=== PATIENT | male | born 1975 | race African-American/Black ===

== ENCOUNTER 2017-04-07 09:11 | Emergency (ER) | payer OTHER ==
[2017-04-07 09:15] VITALS: BP 148/84; PULSE 78; TEMP 98.2; BMI 29.7
[2017-04-07] MEDS ORDERED: KETOROLAC TROMETHAMINE 60 MG/2 ML VIAL IM ONE (10:30)
[2017-04-07] MEDS ORDERED: KETOROLAC TROMETHAMINE 60 MG/2 ML VIAL ONE (10:33)
--- NOTE | 2017-04-07 10:49 | PDOC ---
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 Woke up this morning with pain and spasm to same. Denies numbness or tingling to feet, denies problems with bowel or bladder. Occurred: reports: yesterday Severity: reports: moderate Pain Location: reports: back Method of Injury: Yes: other (heavy lifting) Loss of Consciousness: no loss of consciousness Associated Symptoms (Fall): denies symptoms Past History - Travel Traveled outside of the country in the last 30 days: No Close contact w/someone who was outside of country & ill: No - Past Medical History Allergies/Adverse Reactions: Allergies Allergy/AdvReac Type Severity Reaction Status Date / Time No Known Allergies Allergy Verified 04/07/17 09:15 Home Medications: Ambulatory Orders Cyclobenzaprine HCl [Flexeril 10 mg] 10 mg PO BID PRN #14 tablet 04/07/17 Asthma: Yes - Family Disease History Family Disease History: Diabetes: Mother - Psycho/Social/Smoking Cessation Hx Anxiety: No Suicidal Ideation: No Smoking Status: Yes Smoking History: Current every day smoker Number of Cigarettes Smoked Daily: 30 Information on smoking cessation initiated: Yes 'Breaking Loose' booklet given: 04/07/17 Hx Alcohol Use: Yes (SOCIAL) Drug/Substance Use Hx: No Substance Use Type: None Trauma Specific PMHX - Complaint Specific PMHX Back Injury: Yes (lat year at work lifting heavy box) Review of Systems - Review of Systems Able to Perform ROS?: Yes Is the patient limited Greenlandic proficient: Yes Constitutional: Yes: See HPI. No: Symptoms Reported, Fever, Malaise HEENTM: No: Symptoms Reported Respiratory: No: Symptoms reported Musculoskeletal: Yes: Symptoms Reported, See HPI, Back Pain, Muscle Weakness ( spasm) Integumentary: No: Symptoms Reported All Other Systems: Reviewed and Negative *Physical Exam - Vital Signs Last Vital Signs Temp Pulse Resp BP Pulse Ox 98.2 F 78 20 148/84 99 04/07/17 09:13 04/07/17 09:13 04/07/17 09:13 04/07/17 09:13 04/07/17 09:13 - Physical Exam General Appearance: Yes: Nourished, Appropriately Dressed, Apparent Distress, Mild Distress, Moderate Distress HEENT: positive: MARIE, Normal ENT Inspection, TMs Normal, Pharynx Normal Musculoskeletal: positive: Normal Inspection, Muscle Spasm. negative: CVA Tenderness, Vertebral Tenderness (tense and painful musculature around thoracic to lumbar paravertebral spinous muscles. Has trip to bone tenderness, crepitus or step-offs to vertebral spine. Range of motion is limited secondary to spasm) Extremity: positive: Normal Capillary Refill, Normal Inspection, Normal Range of Motion Integumentary: positive: Normal Color, Dry, Warm Neurologic: positive: youth associate II-XII NML intact, Fully Oriented, Alert, Normal Mood/ Affect, Normal Response, Motor Strength 5/5 *DC/Admit/Observation/Transfer Diagnosis at time of Disposition: Low back strain Qualifiers: Encounter type: initial encounter Qualified Code(s): S39.012A - Strain of muscle, fascia and tendon of lower back, initial encounter - Discharge Dispostion Disposition: HOME Condition at time of disposition: Stable Admit: No - Prescriptions Prescriptions: Cyclobenzaprine HCl [Flexeril 10 mg] 10 mg PO BID PRN #14 tablet PRN Reason: spasm - Patient Instructions Printed Discharge Instructions: DI for Back Strain or Sprain Additional Instructions: Rest, no heavy lifting or exercise until pain is resolved Hot soaks to neck and low back as often as possible/hot showers or Jacuzzis No massage or therapy until spasm is gone Continue ibuprofen 2-200 mg tablets every 6 hours for the next 3 days then as needed for pain and swelling Cyclobenzaprine 1-10mg every 8 hours as needed for spasm If not significant improvement within 24 hours with medication and rest regime, followup with private physician for change in medications and /or therapy. - Post Discharge Activity Work/School Note: Back to Work
== END 2017-04-07 10:51 | disposition home or self-care (01) ==
LOC: JERFT 09:11
PROC: 3E0233Z Introduction of Anti-inflammatory into Muscle, Percutaneous Approach (ICD-10-PCS; principal; 2017-04-07)
DX: S39.012A Strain of muscle, fascia and tendon of lower back, initial encounter (principal); X58.XXXA Exposure to other specified factors, initial encounter; Y93.89 Activity, other specified; Y92.129 Unspecified place in nursing home as the place of occurrence of the external cause; Y99.0 Civilian activity done for income or pay; J45.909 Unspecified asthma, uncomplicated; F17.210 Nicotine dependence, cigarettes, uncomplicated
CPT/HCPCS: 99281-25

== ENCOUNTER 2018-10-02 10:18 | Emergency (ER) | payer OTHER ==
[2018-10-02 10:25] VITALS: BP 134/97; PULSE 71; TEMP 97.5; BMI 30.6
[2018-10-02] MEDS ORDERED: KETOROLAC TROMETHAMINE 60 MG/2 ML VIAL IM ONE (11:06)
--- NOTE | 2018-10-02 11:11 | PDOC ---
History of Present Illness - General Chief Complaint: Pain Stated Complaint: LEG PAIN Time Seen by Provider: 10/02/18 10:50 History Source: Patient Exam Limitations: No Limitations - History of Present Illness Initial Comments: 10/02/18 Patient came with complaints of low back pain. States 3 days ago had onset of pain after doing some twisting at work and is progressively worsen. No relief with Tylenol. Denies numbness or tingling to foot, no fevers or problems with bowel or bladder. Occurred: reports: last week Severity: reports: mild, moderate Pain Location: reports: back Method of Injury: Yes: unknown Modifying Factors: improves with: None Loss of Consciousness: no loss of consciousness Associated Symptoms (Fall): denies symptoms Past History - Travel Traveled outside of the country in the last 30 days: No Close contact w/someone who was outside of country & ill: No - Past Medical History Allergies/Adverse Reactions: Allergies Allergy/AdvReac Type Severity Reaction Status Date / Time No Known Allergies Allergy Verified 10/02/18 10:25 Home Medications: Ambulatory Orders Cyclobenzaprine HCl 10 mg PO Q8H PRN #14 tablet 10/02/18 Hydrochlorothiazide [Hctz -] 25 mg PO DAILY 10/02/18 Hydrochlorothiazide [Hctz -] 25 mg PO DAILY #7 tablet 10/02/18 Naproxen [Naprosyn -] 500 mg PO BID #30 tablet 10/02/18 Asthma: Yes COPD: No HTN: Yes - Family Disease History Family Disease History: Diabetes: Mother - Suicide/Smoking/Psychosocial Hx Smoking Status: Yes Smoking History: Current every day smoker Number of Cigarettes Smoked Daily: 7 Information on smoking cessation initiated: No 'Breaking Loose' booklet given: 03/29/18 Hx Alcohol Use: No Drug/Substance Use Hx: No Substance Use Type: None Trauma Specific PMHX - Complaint Specific PMHX Back Injury: Yes (lat year at work lifting heavy box) Review of Systems - Review of Systems Able to Perform ROS?: Yes Is the patient limited Divehi proficient: Yes Constitutional: Yes: Symptoms Reported, See HPI, Malaise. No: Fever HEENTM: Yes: See HPI. No: Symptoms Reported Respiratory: Yes: See HPI. No: Symptoms reported, Cough Musculoskeletal: Yes: Symptoms Reported, See HPI, Back Pain, Muscle Pain (with radiating pain ) Neurological: Yes: See HPI. No: Symptoms reported All Other Systems: Reviewed and Negative *Physical Exam - Vital Signs Last Vital Signs Temp Pulse Resp BP Pulse Ox 97.5 F L 71 18 134/97 99 10/02/18 10:22 10/02/18 10:22 10/02/18 10:22 10/02/18 10:22 10/02/18 10:22 - Physical Exam General Appearance: Yes: Nourished, Appropriately Dressed, Apparent Distress, Mild Distress HEENT: positive: MARIE, Normal ENT Inspection, TMs Normal, Pharynx Normal Neck: positive: Supple, Lymphadenopathy (R), Lymphadenopathy (L). negative: Tender Respiratory/Chest: positive: Lungs Clear, Normal Breath Sounds Gastrointestinal/Abdominal: positive: Soft. negative: Tender Musculoskeletal: positive: Normal Inspection, Decreased Range of Motion, Muscle Spasm (mild spasm to paravertebral muscles , worse on right thgan left at L2,3,4 ). negative: Vertebral Tenderness Extremity: positive: Normal Capillary Refill, Normal Inspection, Normal Range of Motion Integumentary: positive: Normal Color, Dry, Warm Neurologic: positive: buyer II-XII NML intact, Fully Oriented, Alert, Normal Mood/ Affect, Normal Response, Motor Strength 5/5 Moderate Sedation - Procedure Monitoring Vital Signs: Procedure Monitoring Vital Signs Temperature 97.5 F L 10/02/18 10:22 Pulse Rate 71 10/02/18 10:22 Respiratory Rate 18 10/02/18 10:22 Blood Pressure 134/97 10/02/18 10:22 O2 Sat by Pulse Oximetry (%) 99 10/02/18 10:22 Progress Note - Progress Note Progress Note: Back strain, will treat with NSAIDs and cyclobenzaprine *DC/Admit/Observation/Transfer Diagnosis at time of Disposition: Low back strain Qualifiers: Encounter type: initial encounter Qualified Code(s): S39.012A - Strain of muscle, fascia and tendon of lower back, initial encounter - Discharge Dispostion Disposition: HOME Condition at time of disposition: Stable Decision to Admit order: No - Prescriptions Prescriptions: Cyclobenzaprine HCl 10 mg PO Q8H PRN #14 tablet PRN Reason: spasm Hydrochlorothiazide [Hctz -] 25 mg PO DAILY #7 tablet Naproxen [Naprosyn -] 500 mg PO BID #30 tablet - Referrals - Patient Instructions Printed Discharge Instructions: DI for Back Strain or Sprain Additional Instructions: Rest, no heavy lifting or exercise until pain is resolved Hot soaks to neck and low back as often as possible/hot showers or Jacuzzis No massage or therapy until spasm is gone Continue Naprosyn 500 mg tablet, 1 tablet every 8 hours for the next 3 days then as needed for pain and swelling Cyclobenzaprine 1-10mg every 8 hours as needed for spasm If not significant improvement within 24 hours with medication and rest regime, followup with private physician for change in medications and /or therapy. - Post Discharge Activity Forms/Work/School Notes: Back to Work
[2018-10-02] MEDS ORDERED: KETOROLAC TROMETHAMINE 60 MG/2 ML VIAL ONE (11:12)
== END 2018-10-02 11:34 | disposition home or self-care (01) ==
LOC: JERFT 10:18
PROC: 3E0233Z Introduction of Anti-inflammatory into Muscle, Percutaneous Approach (ICD-10-PCS; principal; 2018-10-02)
DX: S39.012A Strain of muscle, fascia and tendon of lower back, initial encounter (principal); M62.830 Muscle spasm of back; X50.1XXA Overexertion from prolonged static or awkward postures, initial encounter; Y93.H9 Activity, other involving exterior property and land maintenance, building and construction; Y92.128 Other place in nursing home as the place of occurrence of the external cause; Y99.0 Civilian activity done for income or pay; I10 Essential (primary) hypertension; Z87.09 Personal history of other diseases of the respiratory system
CPT/HCPCS: 99281-25

== ENCOUNTER 2019-07-23 11:17 | Emergency (ER) | payer OTHER ==
[2019-07-23 11:23] VITALS: BP 161/101; PULSE 86; TEMP 97.7; BMI 30.9
--- NOTE | 2019-07-23 11:40 | PDOC ---
History of Present Illness - General Chief Complaint: Pain Stated Complaint: RT KNEE PAIN Time Seen by Provider: 07/23/19 11:30 - History of Present Illness Initial Comments: 07/23/19 11:40 CHIEF COMPLAINT: right knee pain HISTORY OF PRESENT ILLNESS: 44 yo M presents to [facility] with right knee swelling and pain . Patient describes pain as a shooting pain, worse to the medial and anterior aspects of the R knee. Denies any recent trauma but does report frequently going to the gym in the past "although not really recently." Patient also reports long standing history of arthritis in his family. No recent travel or sick contacts. PAST MEDICAL HISTORY: Denies past medical history FAMILY HISTORY: Denies SOCIAL HISTORY: Denies tobacco, alcohol, illicit drug use. SURGICAL HISTORY: Denies ALLERGIES: No known drug allergies REVIEW OF SYSTEMS General/Constitutional: Denies fever or chills. Denies weakness, weight change. HEENT: Denies change in vision. Denies ear pain or discharge. Denies sore throat. Cardiovascular: Denies chest pain or shortness of breath. Respiratory: Denies cough, wheezing, or hemoptysis. Gastrointestinal: Denies nausea, vomiting, diarrhea or constipation. Denies rectal bleeding. Genitourinary: Denies dysuria, frequency, or change in urination. Musculoskeletal: R knee pain and swelling. Skin and breasts: Denies rash or easy bruising. Neurologic: Denies headache, vertigo, loss of consciousness, or loss of sensation. Psychiatric: Denies depression or anxiety. PHYSICAL EXAM General Appearance: Well-appearing, appropriately dressed. No apparent distress , no intoxication. HEENT: EOMI, PERRLA, normal ENT inspection, normal voice, TMs normal, pharynx normal. No conjunctival pallor. No photophobia, scleral icterus. Neck: Supple. Trachea midline. No tenderness, rigidity, carotid bruit, stridor , lymphadenopathy, or thyromegaly. Respiratory/Chest: Lungs CTAB. No shortness of breath, chest tenderness, respiratory distress, accessory muscle use. No crackles, rales, rhonchi, stridor , wheezing, dullness Cardiovascular: RRR. S1, S2. No JVD, murmur, bradycardia, tachycardia. Vascular Pulses: Dorsalis-Pedis (R): 2+, Dorsalis-Pedis (L): 2+ Gastrointestinal/Abdominal: Normal bowel sounds. Abdomen soft, non-distended. No tenderness or rebound tenderness. No organomegaly, pulsatile mass, guarding , hernia, hepatomegaly, splenomegaly. Musculoskeletal/Extremities: Tenderness to anterior/medial aspect of R knee. Mild swelling to anterior aspect of R knee. +calf tenderness on palpation. FROM of all extremities, normal capillary refill. Pelvis Stable. No CVA tenderness. No tenderness to extremities, pedal edema, swelling, erythema or deformity. Integumentary: Appropriate color, dry, warm. No cyanosis, erythema, jaundice or rash Neurologic: scoop filler II-XII intact. Fully oriented, alert. Appropriate mood/affect. Motor strength 5/5. No appreciable EOM palsy, facial droop or sensory deficit. 07/23/19 12:23 Past History - Past Medical History Allergies/Adverse Reactions: Allergies Allergy/AdvReac Type Severity Reaction Status Date / Time No Known Allergies Allergy Verified 07/23/19 11:23 Home Medications: Ambulatory Orders Cyclobenzaprine HCl 10 mg PO Q8H PRN #14 tablet 10/02/18 Hydrochlorothiazide [Hctz -] 25 mg PO DAILY 10/02/18 Hydrochlorothiazide [Hctz -] 25 mg PO DAILY #7 tablet 10/02/18 Naproxen [Naprosyn -] 500 mg PO BID #30 tablet 10/02/18 Diclofenac Sodium 75 mg PO BID #20 tablet. 07/23/19 Asthma: Yes COPD: No HTN: Yes - Psycho Social/Smoking Cessation Hx Smoking Status: Yes Smoking History: Current every day smoker Number of Cigarettes Smoked Daily: 7 Information on smoking cessation initiated: No 'Breaking Loose' booklet given: 03/29/18 Hx Alcohol Use: No Drug/Substance Use Hx: No Substance Use Type: None *Physical Exam - Vital Signs Last Vital Signs Temp Pulse Resp BP Pulse Ox 97.7 F 86 18 161/101 H 98 07/23/19 11:20 07/23/19 11:20 07/23/19 11:20 07/23/19 11:20 07/23/19 11:20 ED Treatment Course - RADIOLOGY Radiology Studies Ordered: Category Date Time Status KNEE 3 POS-RIGHT [RAD] Stat Radiology 07/23/19 11:38 Ordered Medical Decision Making - Medical Decision Making 07/23/19 19:55 44 yo M presents to fast track with right knee swelling and pain . -xray -duplex xray, duplex negative. likely pain secondary to arthritis. NSAIDs, f/u with ortho. Advised patient to take medication as prescribed and follow up with ortho within 1 week. Advised patient of signs and symptoms for return to ED. Patient verbalized understanding and agrees to plan. Discharge - Discharge Information Problems reviewed: Yes Clinical Impression/Diagnosis: Arthritis Condition: Stable Disposition: HOME - Admission No - Additional Discharge Information Prescriptions: Diclofenac Sodium 75 mg PO BID #20 tablet.dr - Follow up/Referral Referrals: Sohail William MD [Staff Physician] - Berto Luther MD [Staff Physician] - - Patient Discharge Instructions Patient Printed Discharge Instructions: DI for Osteoarthritis - Post Discharge Activity Work/Back to School Note: Back to Work
[2019-07-23] MEDS ORDERED: KETOROLAC TROMETHAMINE 60 MG/2 ML VIAL IM ONE (12:10)
[2019-07-23] MEDS ORDERED: KETOROLAC TROMETHAMINE 60 MG/2 ML VIAL ONE (12:14)
[2019-07-23] MEDS ORDERED: KETOROLAC TROMETHAMINE 30 MG/1 ML VIAL ONE (12:14)
== END 2019-07-23 12:50 | disposition home or self-care (01) ==
LOC: JERFT 11:17
PROC: 3E0233Z Introduction of Anti-inflammatory into Muscle, Percutaneous Approach (ICD-10-PCS; principal; 2019-07-23)
DX: M17.11 Unilateral primary osteoarthritis, right knee (principal); I10 Essential (primary) hypertension; J45.909 Unspecified asthma, uncomplicated; F17.210 Nicotine dependence, cigarettes, uncomplicated
CPT/HCPCS: 73562-TC-RT-FY; 93971-TC; 99281-25

== ENCOUNTER 2020-04-14 11:03 | Emergency (ER) | payer OTHER ==
[2020-04-14 11:06] VITALS: BP 167/102; PULSE 88; TEMP 97.8; BMI 30.2
[2020-04-14] MEDS ORDERED: KETOROLAC TROMETHAMINE 60 MG/2 ML VIAL IM ONE (11:36)
[2020-04-14] MEDS ORDERED: KETOROLAC TROMETHAMINE 60 MG/2 ML VIAL ONE (11:39)
--- NOTE | 2020-04-14 11:44 | PDOC ---
History of Present Illness - General Chief Complaint: Pain Stated Complaint: RT/LEG SWOLLEN Time Seen by Provider: 04/14/20 11:14 History Source: Patient - History of Present Illness Occurred: reports: other Lower Extremity Pain Location: right: knee Past History - Medical History Allergies/Adverse Reactions: Allergies Allergy/AdvReac Type Severity Reaction Status Date / Time No Known Allergies Allergy Verified 04/14/20 11:06 Home Medications: Ambulatory Orders Cyclobenzaprine HCl 10 mg PO Q8H PRN #14 tablet 10/02/18 Hydrochlorothiazide [Hctz -] 25 mg PO DAILY 10/02/18 Hydrochlorothiazide [Hctz -] 25 mg PO DAILY #7 tablet 10/02/18 Naproxen [Naprosyn -] 500 mg PO BID #30 tablet 10/02/18 Diclofenac Sodium 75 mg PO BID #20 tablet. 07/23/19 Cyclobenzaprine HCl [Flexeril -] 10 mg PO HS #10 tablet 02/04/20 Ibuprofen 600 mg PO Q6H #30 tablet 02/04/20 Naproxen 500 mg PO BID #50 tablet 04/14/20 Asthma: Yes COPD: No HTN: Yes - Psycho-Social/Smoking History Smoking Status: Yes Smoking History: Current every day smoker Number of Cigarettes Smoked Daily: 7 Information on smoking cessation initiated: No 'Breaking Loose' booklet given: 03/29/18 - Substance Abuse Hx (Audit-C & DAST Scrn) How often the patient has a drink containing alcohol: 2-4 times / month Score: In Men: 4 or > Positive; In Women: 3 or > Positive: 2 Screen Result (Pos requires Nsg. Audit-10AR): Negative Review of Systems - Review of Systems Constitutional: No: Chills, Fever Musculoskeletal: Yes: Joint Pain, Joint Swelling *Physical Exam - Vital Signs Last Vital Signs Temp Pulse Resp BP Pulse Ox 97.8 F 88 18 167/102 H 98 04/14/20 11:04 04/14/20 11:04 04/14/20 11:04 04/14/20 11:04 04/14/20 11:04 Medical Decision Making - Medical Decision Making 04/14/20 11:44 45 yo M, HTN, here w/ R knee pain/swelling r/t leg x 3 days. No sen changes, f/c. Not taking anything for pain. No trauma. Had similar condition 08/01 and seen at [facility] w/ neg XR and US. States he was given medication which helped. States he was told he had arthritis and that he has a significant family history of arthritis See exam M/l MSK knee pain, i.e arthritis, oversue, etx Neg XR/US 08/01 No h/o gout No e/o infection Dose of toradol given in ED Dc w/ pain control and PMD f/u Elevated BP H/o HTN and non-compliant w/ meds Asx form BP standpoint D/w pt importance of meds compliance PMD f/u Discharge - Discharge Information Problems reviewed: Yes Clinical Impression/Diagnosis: Elevated blood pressure reading Knee pain Qualifiers: Chronicity: acute Laterality: right Qualified Code(s): M25.561 - Pain in right knee Condition: Good Disposition: HOME - Additional Discharge Information Prescriptions: Naproxen 500 mg PO BID #50 tablet - Follow up/Referral - Patient Discharge Instructions Patient Printed Discharge Instructions: DI for Knee Pain Additional Instructions: Take medication as directed, elevate and use FITO for swelling Please follow up with your PMD Your blood pressure was elevated here. It is important to take your medications as directed to prevent complication such as heart attack, stroke or kidney disease - Post Discharge Activity
== END 2020-04-14 12:23 | disposition home or self-care (01) ==
LOC: JERFT 11:03
PROC: 3E0233Z Introduction of Anti-inflammatory into Muscle, Percutaneous Approach (ICD-10-PCS; principal; 2020-04-14)
DX: M25.561 Pain in right knee (principal); R03.0 Elevated blood-pressure reading, without diagnosis of hypertension
CPT/HCPCS: 99284-25

== ENCOUNTER 2020-07-18 10:56 | Emergency (ER) | payer OTHER ==
[2020-07-18 11:15] VITALS: BP 155/109; PULSE 85; TEMP 98.9; BMI 29.7
--- OUTSIDE RECORDS SUMMARY | 2020-07-18 11:22 | XMS ---
:1975 Author Organization [facility] Support Name Relationship Address Phone [facility] Unavailable [address] [place] [address] MADISON MAHAN [address] [place] [address] Re-disclosure Warning The records that you are about to access may contain information from federally- assisted alcohol or drug abuse programs. If such information is present, then the following federally mandated warning applies: This information has been disclosed to you from records protected by federal confidentiality rules (42 CFR part 2). The federal rules prohibit you from making any further disclosure of this information unless further disclosure is expressly permitted by the written consent of the person to whom it pertains or as otherwise permitted by 42 CFR part 2. A general authorization for the release of medical or other information is NOT sufficient for this purpose. The Federal rules restrict any use of the information to criminally investigate or prosecute any alcohol or drug abuse patient.The records that you are about to access may contain highly sensitive health information, the redisclosure of which is protected by Article 27-F of the [facility] Public Health law. If you continue you may haveaccess to information: Regarding HIV / AIDS; Provided by facilities licensed or operated by the [facility] Office of Mental Health; or Provided by the [facility] Office for People With Developmental Disabilities. If such information is present, then the following [facility] mandated warning applies: This information has been disclosed to you from confidential records which are protected by state law. State law prohibits you from making any further disclosure of this information without the specific written consent of the person to whom it pertains, or as otherwise permitted by law. Any unauthorized further disclosure in violation of state law may result in a fine or shelter sentence or both. A general authorization for the release of medical or other information is NOT sufficient authorization for further disclosure. Insurance Providers Payer name Policy type Policy ID Covered Covered democrat's Policy P wanda / Coverage democrat ID relationship to [place] [employer] ormation type [place] [employer] [id number] SP [id number] 01 HEALTHCARE HMO 1 Results ID Date Data Source [id number] 07/09/2020 12:00:00 AM EDT [facility] Name Value Range Interpretation Description Data Sup porting Code Source(s) Document(s ) [facility] coronavirus 2 RNA This lab was ordered by [employer] and reported by [employer].. ID Date Data Source [id number] 07/03/2020 12:00:00 AM EDT [facility] Name Value Range Interpretation Description Data Sup porting Code Source(s) Document(s ) [facility] coronavirus 2 RNA This lab was ordered by [employer] and reported by [employer].. ID Date Data Source [id number] 06/26/2020 12:00:00 AM EDT [facility] Name Value Range Interpretation Description Data Sup porting Code Source(s) Document(s ) [facility] coronavirus 2 RNA This lab was ordered by [employer] and reported by [employer].. ID Date Data Source [id number] 06/12/2020 12:00:00 AM EDT [facility] Name Value Range Interpretation Description Data Sup porting Code Source(s) Document(s ) SARS [facility] coronavirus 2 RNA This lab was ordered by [email or web address] and reported by [employer] ID Date Data Source [id number] 03/01/2020 12:00:00 AM EDT [facility] Name Value Range Interpretation Description Data Sup porting Code Source(s) Document(s ) SARS [facility] coronavirus 2 RNA A This lab was ordered by [email or web address] and reported by [employer].. ID Date Data Source [id number] 02/23/2020 12:00:00 AM EDT [facility] Name Value Range Interpretation Description Data Sup porting Code Source(s) Document(s ) SARS [facility] coronavirus 2 RNA A This lab was ordered by [employer] and reported by [employer].. ID Date Data Source [id number] 02/20/2020 12:00:00 AM EDT [facility] Name Value Range Interpretation Description Data Sup porting Code Source(s) Document(s ) SARS [facility] coronavirus 2 RNA A This lab was ordered by [facility] and reported by [employer].. ID Date Data Source [id number] 02/12/2020 12:00:00 AM EDT [facility] Name Value Range Interpretation Description Data Sup porting Code Source(s) Document(s ) [facility] coronavirus 2 RNA A This lab was ordered by [facility] and reported by [employer].. ID Date Data Source [id number] 02/09/2020 12:00:00 AM EDT [facility] Name Value Range Interpretation Description Data Sup porting Code Source(s) Document(s ) [facility] coronavirus 2 RNA A This lab was ordered by [facility] and reported by [employer].. Procedure
--- NOTE | 2020-07-18 11:56 | PDOC ---
History of Present Illness - General Chief Complaint: Ear Problem Stated Complaint: EAR PAIN Time Seen by Provider: 07/18/20 11:32 History Source: Patient Exam Limitations: Clinical Condition - History of Present Illness Initial Comments: 07/18/20 12:13 Patient with no significant past medical history present with complaint of 2-day history of right ear pain and yellow discharge from right ear since last night. Patient report feeling of swelling in right ear. Reported no pain to left ear. Denies fever, chills, headache, nausea, vomiting. Denies any other symptoms Is this a multiple visit Asthma Patient?: No Timing/Duration: other (2 days) Past History - Medical History Allergies/Adverse Reactions: Allergies Allergy/AdvReac Type Severity Reaction Status Date / Time No Known Allergies Allergy Verified 07/18/20 11:07 Home Medications: Ambulatory Orders Cyclobenzaprine HCl 10 mg PO Q8H PRN #14 tablet 10/02/18 Hydrochlorothiazide [Hctz -] 25 mg PO DAILY 10/02/18 Hydrochlorothiazide [Hctz -] 25 mg PO DAILY #7 tablet 10/02/18 Naproxen [Naprosyn -] 500 mg PO BID #30 tablet 10/02/18 Diclofenac Sodium 75 mg PO BID #20 tablet. 07/23/19 Cyclobenzaprine HCl [Flexeril -] 10 mg PO HS #10 tablet 02/04/20 Ibuprofen 600 mg PO Q6H #30 tablet 02/04/20 Naproxen 500 mg PO BID #50 tablet 04/14/20 Neomycin/Polymyxin B/Hydrocort [Auyvpzdp-Zvndbuuvj-Qz Ear Susp] 4 drop AD Q8H 5 Days #1 bottle 07/18/20 Asthma: Yes COPD: No HTN: Yes - Psycho-Social/Smoking History Smoking Status: Yes Smoking History: Current every day smoker Number of Cigarettes Smoked Daily: 10 Information on smoking cessation initiated: Yes 'Breaking Loose' booklet given: 03/29/18 - Substance Abuse Hx (Audit-C & DAST Scrn) How often the patient has a drink containing alcohol: 2-4 times / month Score: In Men: 4 or > Positive; In Women: 3 or > Positive: 2 Screen Result (Pos requires Nsg. Audit-10AR): Negative In the last yr the pt used illegal drug/Rx for NonMed reason: No Score: Yes response is considered Positive: 0 Screen Result (Positive result requires Nsg. DAST-10): Negative Review of Systems - Review of Systems Able to Perform ROS?: Yes Is the patient limited [place] proficient: No Constitutional: No: Chills, Fever, Malaise HEENTM: Yes: Symptoms Reported, See HPI, Ear Pain (right ear pain). No: Eye Pain, Blurred Vision, Tearing, Recent change in vision, Double Vision, Cataracts, Ocular Prothesis, Ear Discharge, Nose Pain, Nose Congestion, Tinnitus, Nose Bleeding, Hearing Loss, Throat Pain, Throat Swelling, Mouth Pain, Dental Problems, Difficulty Swallowing, Mouth Swelling, Other Respiratory: No: Symptoms reported, See HPI, Cough, Orthopnea, Shortness of Breath, SOB with Exertion, SOB at Rest, Stridor, Wheezing, Productive cough, Hemoptysis, Other Cardiac (ROS): No: Symptoms Reported, See HPI, Chest Pain, Edema, Irregular Heart Rate, Lightheadedness, Palpitations, Syncope, Chest Tightness, Other ABD/GI: No: Symptoms Reported, Nausea, Vomiting Musculoskeletal: No: Symptoms Reported Integumentary: No: Symptoms Reported Neurological: No: Symptoms reported, Headache, Dizziness All Other Systems: Reviewed and Negative *Physical Exam - Vital Signs Last Vital Signs Temp Pulse Resp BP Pulse Ox 98.9 F 85 17 155/109 H 99 07/18/20 11:08 07/18/20 11:08 07/18/20 11:08 07/18/20 11:08 07/18/20 11:08 - Physical Exam 07/18/20 12:14 GENERAL: Well developed, well nourished. Awake and alert. No acute distress. HEENT: Normocephalic, atraumatic. mild erythema in right external ear canal with trace serous fluid in right ear canal.left ear canal normal. Tympanic membrane normal bilateral. PERRLA, EOMI. No conjunctival pallor. Sclera are non-icteric. Moist mucous membranes. Oropharynx is clear. NECK: Supple. Full ROM. CARDIOVASCULAR: Regular rate and rhythm. No murmurs, rubs, or gallops. PULMONARY: No evidence of respiratory distress. Lungs clear to auscultation bilaterally. No wheezing, rales or rhonchi. MUSCULOSKELETAL Normal range of motion at all joints. SKIN: Warm and dry. Normal capillary refill. No rashes. No jaundice. NEUROLOGICAL: Alert, awake, appropriate. Gait is normal without ataxia. PSYCHIATRIC: Cooperative. Good eye contact. Appropriate mood General Appearance: Yes: Nourished, Appropriately Dressed. No: Apparent Distress Medical Decision Making - Medical Decision Making 07/18/20 12:13 Patient with no significant past medical history present with complaint of 2-day history of right ear pain and yellow discharge from right ear since last night. Patient report feeling of swelling in right ear. Reported no pain to left ear. Denies fever, chills, headache, nausea, vomiting. Denies any other symptoms Exam significant for mild erythema in right external ear canal with trace serous fluid in right ear canal. Patient afebrile. Left ear canal normal. Normal cardio lung exam. Patient stable for discharge on neomycin with polymycin hydrocortisone ear drops with ENT follow-up Discharge - Discharge Information Problems reviewed: Yes Clinical Impression/Diagnosis: Right otitis externa Qualifiers: Otitis externa type: unspecified type Chronicity: acute Qualified Code(s): H60.501 - Unspecified acute noninfective otitis externa, right ear Condition: Stable Disposition: HOME - Admission No - Additional Discharge Information Prescriptions: Neomycin/Polymyxin B/Hydrocort [Kouaqqdp-Fzoteexye-Io Ear Susp] 4 drop AD Q8H 5 Days #1 bottle - Follow up/Referral Referrals: Ian Heredia MD [Primary Care Provider] - Luis Alfredo Barth MD [Staff Physician] - - Patient Discharge Instructions Patient Printed Discharge Instructions: DI for Otitis Externa Additional Instructions: use prescribed antibiotics ear drops as prescribed. follow-up with referred ENT if symptoms persist for more than 4 days - Post Discharge Activity
== END 2020-07-18 11:58 | disposition home or self-care (01) ==
LOC: JERFT 10:56 → JER 10:56 → JERFT 11:58
DX: H60.501 Unspecified acute noninfective otitis externa, right ear (principal)
CPT/HCPCS: 99283-25

== ENCOUNTER 2022-04-07 11:10 | Emergency (ER) | payer OTHER ==
[2022-04-07 11:41] VITALS: BP 127/83; PULSE 61; RESP 18; TEMP 97.9; BMI 29.8
== END 2022-04-07 13:31 | disposition home or self-care (01) ==
LOC: JERFT 11:10
DX: M54.14 Radiculopathy, thoracic region (principal)
CPT/HCPCS: 73030-TC-RT-FY; 99283-25

== ENCOUNTER 2022-12-07 11:57 | Emergency (ER) | payer OTHER ==
[2022-12-07 12:21] VITALS: BP 166/106; PULSE 73; RESP 17; TEMP 98.3; BMI 28.8
== END 2022-12-07 14:34 | disposition home or self-care (01) ==
LOC: JER 11:57
DX: R20.2 Paresthesia of skin (principal); M54.30 Sciatica, unspecified side
CPT/HCPCS: 99282-25